=== PATIENT | male | born 1975 | race Caucasian/White ===

== ENCOUNTER 2021-03-23 17:56 | Inpatient (IN) | payer BC ==
[2021-03-23] MEDS ORDERED: Diazepam 5 MG TAB PO PRN (20:24)
[2021-03-23 23:42] VITALS: BMI 30.2
[2021-03-23] MEDS ORDERED: levETIRAcetam 500 MG TAB PO SCH (23:59)
[2021-03-24] MEDS ORDERED: Acetaminophen 650 MG Suppository PR PRN (00:29)
[2021-03-24] MEDS ORDERED: Ondansetron ODT 4 MG TAB PO PRN (00:29)
[2021-03-24] MEDS ORDERED: Acetaminophen 325 MG TAB PO PRN (00:29)
[2021-03-24] MEDS: Dexamethasone 4 MG TAB PO SCH ×4 (00:30→18:01)
[2021-03-24] MEDS ORDERED: Morphine 4 MG/ML VIAL SLOW IVP PRN (00:31)
[2021-03-24 06:50] LABS: SARS-CoV-2 NAA Rapid Test Not Detected (NotDetected)
[2021-03-24 07:13] LABS: #Monocytes 0.4 thou/uL (0.11-0.59); #Neutrophils 7.3 thou/uL (1.40-6.50); %Basophils 0.1 % (0.0-1.0); %Lymphocytes 11.4 % (21.0-51.0); %Neutrophils 83.4 % (42.0-75.0); Hemoglobin 14.7 g/dL (14.0-18.0); Mean Corpuscular HGB CONC 34.5 g/dL (32.0-36.0); Mean Corpuscular Hemoglobin 31.3 pg (27.0-31.0); Mean Corpuscular Volume 90.9 fL (78.0-98.0); Mean Platelet Volume 8.7 fL (7.4-10.4); Platelet Count 185 thou/uL (130-400); RBC Distribution Width 11.8 % (11.5-14.5); Red Blood Cell (RBC) Count 4.69 mill/uL (4.70-6.10); White Blood Cell (WBC) Count 8.8 thou/uL (4.8-10.8)
[2021-03-24 07:30] LABS: Anion Gap 12 mmol/L (10-20); BUN (Urea Nitrogen) 9 mg/dL (8.9-20.6); Calc. Creatinine Clearance 205 mL/min (70-130); Calcium 9.6 mg/dL (7.8-10.44); Carbon Dioxide 24 mmol/L (22-29); Chloride 104 mmol/L (98-107); Glucose 124 mg/dL (70-105); Potassium 4.3 mmol/L (3.5-5.1); Sodium 136 mmol/L (136-145)
[2021-03-24] MEDS: levETIRAcetam 500 MG TAB PO SCH ×2 (09:00→21:22)
[2021-03-24] MEDS ORDERED: Magnevist 469MG/ML 20 ML VIAL ONE (09:51)
[2021-03-24] MEDS ORDERED: Iopamidol-370 76% 500 ML 1 ML ONE (10:10)
[2021-03-24] MEDS: Zinc Sulfate 220 MG CAP PO SCH (11:47)
[2021-03-24] MEDS: Cholecalciferol (Vitamin D3) 400 UNITS TAB PO SCH (11:47)
[2021-03-24] MEDS: Ascorbic Acid 500 mg Chewable Tablet PO SCH (11:47)
[2021-03-25] MEDS: Dexamethasone 4 MG TAB PO SCH ×5 (00:46→23:00)
[2021-03-25] MEDS ORDERED: Lidocaine 0.5%/Epinephrine 1:200,000 50 ml Vial ONE (09:15)
[2021-03-25] MEDS ORDERED: Bacitracin Zinc Ointment 30 gm TUBE ONE (09:16)
[2021-03-25] MEDS ORDERED: Midazolam HCl 2 mg/2 ml Vial ONE (09:28)
[2021-03-25] MEDS: Zinc Sulfate 220 MG CAP PO SCH (10:07)
[2021-03-25] MEDS: levETIRAcetam 500 MG TAB PO SCH ×2 (10:07→20:18)
[2021-03-25] MEDS: Cholecalciferol (Vitamin D3) 400 UNITS TAB PO SCH (10:07)
[2021-03-25] MEDS: Ascorbic Acid 500 mg Chewable Tablet PO SCH (10:07)
[2021-03-25] MEDS ORDERED: ceFAZolin 2 GM/DEX 5% 100 ML BAG ONE (10:33)
[2021-03-25] MEDS ORDERED: Fentanyl 100 MCG/2 ML VIAL ONE ×3 (10:41→14:56)
[2021-03-25] MEDS ORDERED: Fentanyl 250 MCG/5 ML VIAL ONE (10:42)
[2021-03-25] MEDS ORDERED: Glycopyrrolate 0.2 MG/ML 5 ML SYRINGE ONE (10:49)
[2021-03-25] MEDS ORDERED: PHENYLEPHRINE-NS 100 MCG/ML 10 ML SYRINGE ONE (10:49)
[2021-03-25] MEDS ORDERED: Rocuronium Bromide 10 MG/ML (10ML VIAL) ONE (10:49)
[2021-03-25] MEDS ORDERED: PROPOFOL 200 MG/20 ML VIAL ONE (10:49)
[2021-03-25] MEDS ORDERED: Dexamethasone 20 MG/5 ML VIAL ONE (10:49)
[2021-03-25] MEDS ORDERED: Ondansetron PF 4 MG/2 ML Vial ONE ×3 (10:49→13:47)
[2021-03-25] MEDS ORDERED: Lidocaine 1% PF 5 ML VIAL ONE (10:49)
[2021-03-25] MEDS ORDERED: levETIRAcetam in NS 500 MG in Premix Bag 1 BAG IVPB SCH (11:00)
[2021-03-25] MEDS ORDERED: PROPOFOL 20 ML ONE ×3 (11:32→13:54)
[2021-03-25] MEDS ORDERED: Rocuronium Bromide 50 MG/5 ML VIAL ONE (11:34)
[2021-03-25] MEDS ORDERED: SUGAMMADEX SODIUM 200 MG/2 ML VIAL ONE (13:58)
[2021-03-25] MEDS ORDERED: Acetaminophen/Codeine 30-300mg Tablet PO PRN (16:21)
[2021-03-25] MEDS ORDERED: Promethazine HCl 12.5 MG in Sodium Chloride 0.9% 50 ML IVPB PRN (16:21)
[2021-03-25] MEDS ORDERED: Morphine 4 MG/ML VIAL ONE (16:26)
[2021-03-25] MEDS: Ondansetron PF 4 MG/2 ML Vial IVP PRN (16:29)
[2021-03-25] MEDS: Morphine 4 MG/ML VIAL SLOW IVP PRN ×3 (16:40→23:03)
[2021-03-25] MEDS: Sodium Chloride 0.9% 1,000 ML IV SCH (17:19)
[2021-03-25] MEDS: HYDROcodone/Acetaminophen 7.5/325 mg Tablet PO PRN (18:06)
[2021-03-25] MEDS: ceFAZolin Sodium/D5W 2 GM in Premix Bag 1 BAG IVPB SCH (21:26)
[2021-03-26] MEDS: Morphine 4 MG/ML VIAL SLOW IVP PRN ×5 (01:55→21:40)
[2021-03-26 04:36] LABS: Band 1 % (5-11); Hemoglobin 11.7 g/dL (14.0-18.0); Hypochromia SLIGHT = 6-15 cells (100X) (0-5/hpf); Lymphocytes 11 % (21-51); MDiff Complete? YES; Mean Corpuscular HGB CONC 33.4 g/dL (32.0-36.0); Mean Corpuscular Volume 92.9 fL (78.0-98.0); Mean Platelet Volume 8.8 fL (7.4-10.4); Monocytes 7 % (0-10); Neutrophil 81 % (42-75); Platelet Count 235 thou/uL (130-400); Platelet Morphology Comment Appears Adequate; RBC Distribution Width 12.2 % (11.5-14.5); Red Blood Cell (RBC) Count 3.78 mill/uL (4.70-6.10); White Blood Cell (WBC) Count 24.5 thou/uL (4.8-10.8)
[2021-03-26 04:42] LABS: Anion Gap 13 mmol/L (10-20); BUN (Urea Nitrogen) 26 mg/dL (8.9-20.6); Calc. Creatinine Clearance 152 mL/min (70-130); Carbon Dioxide 25 mmol/L (22-29); Chloride 105 mmol/L (98-107); Glucose 135 mg/dL (70-105); Potassium 4.5 mmol/L (3.5-5.1); Sodium 138 mmol/L (136-145)
[2021-03-26] MEDS: Ondansetron PF 4 MG/2 ML Vial IVP PRN (04:52)
[2021-03-26] MEDS: Dexamethasone 4 MG TAB PO SCH ×4 (05:31→23:17)
[2021-03-26] MEDS: ceFAZolin Sodium/D5W 2 GM in Premix Bag 1 BAG IVPB SCH ×2 (05:32→14:44)
[2021-03-26] MEDS: Sodium Chloride 0.9% 1,000 ML IV SCH ×2 (05:35→21:40)
[2021-03-26] MEDS: Ascorbic Acid 500 mg Chewable Tablet PO SCH (08:53)
[2021-03-26] MEDS: Zinc Sulfate 220 MG CAP PO SCH (08:54)
[2021-03-26] MEDS: Cholecalciferol (Vitamin D3) 400 UNITS TAB PO SCH (08:54)
[2021-03-26] MEDS: levETIRAcetam 500 MG TAB PO SCH ×2 (08:54→21:40)
[2021-03-26] MEDS: HYDROcodone/Acetaminophen 7.5/325 mg Tablet PO PRN (09:16)
[2021-03-27] MEDS: Morphine 4 MG/ML VIAL SLOW IVP PRN (03:42)
[2021-03-27] MEDS: Sodium Chloride 0.9% 1,000 ML IV SCH (06:28)
[2021-03-27] MEDS: Dexamethasone 4 MG TAB PO SCH ×2 (06:28→12:51)
[2021-03-27] MEDS: Ascorbic Acid 500 mg Chewable Tablet PO SCH (08:51)
[2021-03-27] MEDS: Zinc Sulfate 220 MG CAP PO SCH (08:51)
[2021-03-27] MEDS: Cholecalciferol (Vitamin D3) 400 UNITS TAB PO SCH (08:51)
[2021-03-27] MEDS: levETIRAcetam 500 MG TAB PO SCH (08:52)
[2021-03-27 12:03] VITALS: BP 151/84; TEMP 98.2
[2021-03-27] MEDS ORDERED: traMADol HCl 50 MG TAB PO PRN (14:15)
[2021-03-27] MEDS ORDERED: Bisacodyl 5 MG TAB PO PRN (14:18)
[2021-03-27] MEDS ORDERED: Docusate 100 MG CAP PO SCH (21:00)
== END 2021-03-27 17:00 | disposition home or self-care (01) | DRG 25 ==
LOC: SURG A 17:56 → CCU 03-25 10:25 → SURG A 03-26 10:12
PROVIDERS: ADMIT Family Medicine; ATTEND Internal Medicine
PROC: 00B70ZZ Excision of Cerebral Hemisphere, Open Approach (ICD-10-PCS; principal; 2021-03-25)
DX: C71.2 Malignant neoplasm of temporal lobe (principal); G93.6 Cerebral edema; G93.5 Compression of brain; C79.31 Secondary malignant neoplasm of brain; I10 Essential (primary) hypertension; Z20.822 Contact with and (suspected) exposure to COVID-19; H53.462 Homonymous bilateral field defects, left side; Z88.8 Allergy status to other drugs, medicaments and biological substances; Z79.899 Other long term (current) drug therapy; Z79.82 Long term (current) use of aspirin
CPT/HCPCS: 36415; 36416; 36430; 70450; 70553; 71260; 74177; 80048; 85025; 86850; 86900; 86901; 88307; 88331; 88341; 88342; 88360; 93970; A9579; C1713; J1100; J1642; J1953; J2001; J2250; J2270; J2405; J2704; J3010; J7050; J8540; Q9967; U0002

== ENCOUNTER 2021-06-09 09:51 | Emergency (ER) | payer BC, OTHER ==
[2021-06-09 10:25] LABS: #Eosinphils 0.1 thou/uL (0.0-0.7); #Lymphocytes 0.4 thou/uL (1.20-3.40); #Monocytes 0.5 thou/uL (0.11-0.59); #Neutrophils 6.6 thou/uL (1.40-6.50); %Basophils 0.5 % (0.0-1.0); %Eosinophils 1.2 % (0.0-10.0); %Monocytes 6.1 % (0.0-10.0); %Neutrophils 87.2 % (42.0-75.0); Hemoglobin 14.7 g/dL (14.0-18.0); Mean Corpuscular HGB CONC 34.1 g/dL (32.0-36.0); Mean Platelet Volume 8.1 fL (7.4-10.4); Platelet Count 130 thou/uL (130-400); RBC Distribution Width 12.3 % (11.5-14.5); Red Blood Cell (RBC) Count 4.75 mill/uL (4.70-6.10); White Blood Cell (WBC) Count 7.6 thou/uL (4.8-10.8)
[2021-06-09] MEDS ORDERED: Acetaminophen 500 MG TAB ONE (10:28)
[2021-06-09 10:49] LABS: ALT (SGPT) 28 U/L (8-55); AST (SGOT) 16 U/L (5-34); Albumin 4.5 g/dL (3.5-5.0); Alkaline Phosphatase 70 U/L (40-110); Anion Gap 10 mmol/L (10-20); BUN (Urea Nitrogen) 9 mg/dL (8.9-20.6); Bilirubin, Total 0.6 mg/dL (0.2-1.2); Calc. Creatinine Clearance 0 mL/min (70-130); Calcium 9.4 mg/dL (7.8-10.44); Carbon Dioxide 27 mmol/L (22-29); Chloride 103 mmol/L (98-107); Globulin 2.3 g/dL (2.4-3.5); Glucose 101 mg/dL (70-105); Lipase 29 U/L (8-78); Potassium 4.2 mmol/L (3.5-5.1); Protein, Total 6.8 g/dL (6.0-8.3); Sodium 136 mmol/L (136-145)
[2021-06-09] MEDS ORDERED: Dexamethasone 10 MG/ML VIAL ONE (12:37)
== END 2021-06-09 15:53 | disposition home or self-care (01) ==
LOC: ERS 09:51
DX: G93.9 Disorder of brain, unspecified (principal); R41.3 Other amnesia
CPT/HCPCS: 36415; 70450; 77386; 80053; 83605; 83690; 85025; 87040; 93005; 96374; J1100

== ENCOUNTER 2021-06-11 11:15 | Inpatient (IN) | payer BC, OTHER ==
[2021-06-11] MEDS ORDERED: Dexamethasone 10 MG/ML VIAL ONE (11:53)
[2021-06-11 11:59] LABS: #Lymphocytes 0.3 thou/uL (1.20-3.40); #Monocytes 0.9 thou/uL (0.11-0.59); #Neutrophils 11.7 thou/uL (1.40-6.50); %Basophils 0.2 % (0.0-1.0); %Lymphocytes 2.3 % (21.0-51.0); %Monocytes 7.2 % (0.0-10.0); %Neutrophils 90.4 % (42.0-75.0); Hemoglobin 13.6 g/dL (14.0-18.0); Mean Corpuscular HGB CONC 33.7 g/dL (32.0-36.0); Mean Corpuscular Hemoglobin 30.1 pg (27.0-31.0); Mean Corpuscular Volume 89.3 fL (78.0-98.0); Mean Platelet Volume 7.4 fL (7.4-10.4); Platelet Count 155 thou/uL (130-400); RBC Distribution Width 12.3 % (11.5-14.5); Red Blood Cell (RBC) Count 4.52 mill/uL (4.70-6.10)
[2021-06-11 12:23] LABS: ALT (SGPT) 22 U/L (8-55); AST (SGOT) 14 U/L (5-34); Alkaline Phosphatase 60 U/L (40-110); Anion Gap 11 mmol/L (10-20); BUN (Urea Nitrogen) 16 mg/dL (8.9-20.6); Bilirubin, Total 0.5 mg/dL (0.2-1.2); Calc. Creatinine Clearance 0 mL/min (70-130); Calcium 8.8 mg/dL (7.8-10.44); Carbon Dioxide 22 mmol/L (22-29); Chloride 96 mmol/L (98-107); Globulin 2.4 g/dL (2.4-3.5); Glucose 135 mg/dL (70-105); Protein, Total 6.4 g/dL (6.0-8.3); Sodium 125 mmol/L (136-145)
[2021-06-11 12:37] LABS: Bilirubin Negative (Negative); Blood, Urine Negative (Negative); Glucose, Urine (Dipstick) Normal (Negative); Ketone, Urine Negative (Negative); Leukocyte Negative Leu/uL (Negative); Nitrite Negative (Negative); Protein, Urine (Dipstick) 20 mg/dL (Neg-Trace); Specific Gravity, Urine 1.026 (1.002-1.036); pH, Urine 7.5 (5.0-9.0)
[2021-06-11 12:39] LABS: Clarity Hazy (Clear)
[2021-06-11 13:26] LABS: SARS-CoV-2 NAA Rapid Test Not Detected (NotDetected)
[2021-06-11] MEDS ORDERED: Ondansetron PF 4 MG/2 ML Vial IVP PRN ×2 (14:45→15:35)
[2021-06-11] MEDS ORDERED: Ondansetron ODT 4 MG TAB SL PRN (14:45)
[2021-06-11 14:48] VITALS: BMI 28.2
[2021-06-11] MEDS ORDERED: Sodium Chloride 3% 100 ML IVPB SCH (15:00)
[2021-06-11] MEDS ORDERED: Lorazepam 2 MG/ML VIAL SLOW IVP PRN (15:40)
[2021-06-11] MEDS ORDERED: Prevnar 13-Val Conj/PF 0.5 ML SYRINGE IM ONE (16:15)
[2021-06-11 16:49] LABS: Creatinine, Urine 135.67 mg/dL (63-166)
[2021-06-11] MEDS ORDERED: Dexamethasone 4 mg/ml Vial SLOW IVP SCH (18:00)
[2021-06-11] MEDS: Dexamethasone 4 mg/ml Vial SLOW IVP SCH ×2 (18:17→23:59)
[2021-06-11] MEDS: Cefepime 2 GM in Sodium Chloride 0.9% 100 ML IVPB SCH (22:28)
[2021-06-11 22:51] LABS: Anion Gap 10 mmol/L (10-20); BUN (Urea Nitrogen) 15 mg/dL (8.9-20.6); Calc. Creatinine Clearance 182 mL/min (70-130); Calcium 8.7 mg/dL (7.8-10.44); Carbon Dioxide 21 mmol/L (22-29); Chloride 96 mmol/L (98-107); Glucose 129 mg/dL (70-105); Potassium 4.1 mmol/L (3.5-5.1); Sodium 123 mmol/L (136-145)
[2021-06-11] MEDS ORDERED: Calcium Carbonate 500 MG ChewTAB PO SCH (23:30)
[2021-06-11] MEDS ORDERED: ADMIXTURE FEE IVPB SCH (23:45)
[2021-06-11] MEDS ORDERED: IN SODIUM CHLORIDE IVPB SCH (23:45)
[2021-06-12 01:53] LABS: Anion Gap 12 mmol/L (10-20); BUN (Urea Nitrogen) 15 mg/dL (8.9-20.6); Calc. Creatinine Clearance 180 mL/min (70-130); Calcium 8.4 mg/dL (7.8-10.44); Carbon Dioxide 19 mmol/L (22-29); Chloride 99 mmol/L (98-107); Glucose 121 mg/dL (70-105); Potassium 4.1 mmol/L (3.5-5.1); Sodium 126 mmol/L (136-145)
[2021-06-12] MEDS: Acetaminophen 650 MG/20.3 ML UDCUP PO PRN (05:54)
[2021-06-12] MEDS: Dexamethasone 4 mg/ml Vial SLOW IVP SCH ×3 (05:56→17:42)
[2021-06-12] MEDS ORDERED: Morphine 4 MG/ML VIAL SLOW IVP SCH (06:15)
[2021-06-12 06:17] LABS: #Lymphocytes 0.5 thou/uL (1.20-3.40); #Monocytes 1.5 thou/uL (0.11-0.59); #Neutrophils 10.5 thou/uL (1.40-6.50); %Basophils 0.1 % (0.0-1.0); %Eosinophils 0.1 % (0.0-10.0); %Lymphocytes 3.8 % (21.0-51.0); %Monocytes 12.1 % (0.0-10.0); %Neutrophils 84.1 % (42.0-75.0); Mean Corpuscular HGB CONC 34.8 g/dL (32.0-36.0); Mean Corpuscular Hemoglobin 30.8 pg (27.0-31.0); Mean Corpuscular Volume 88.5 fL (78.0-98.0); Mean Platelet Volume 7.5 fL (7.4-10.4); Platelet Count 158 thou/uL (130-400); RBC Distribution Width 12.4 % (11.5-14.5); Red Blood Cell (RBC) Count 4.53 mill/uL (4.70-6.10); White Blood Cell (WBC) Count 12.6 thou/uL (4.8-10.8)
[2021-06-12] MEDS ORDERED: Sodium Chloride 3% 300 ML IVPB SCH (06:30)
[2021-06-12 06:43] LABS: Anion Gap 16 mmol/L (10-20); BUN (Urea Nitrogen) 15 mg/dL (8.9-20.6); Calc. Creatinine Clearance 189 mL/min (70-130); Calcium 8.7 mg/dL (7.8-10.44); Carbon Dioxide 14 mmol/L (22-29); Chloride 98 mmol/L (98-107); Glucose 117 mg/dL (70-105); Sodium 124 mmol/L (136-145)
[2021-06-12 07:42] LABS: Bacteria/HPF 3+ HPF (None Seen); Bilirubin Negative (Negative); Blood, Urine Negative (Negative); Clarity Clear (Clear); Glucose, Urine (Dipstick) 30 mg/dL (Negative); Ketone, Urine 20 mg/dL (Negative); Leukocyte Negative Leu/uL (Negative); Nitrite Negative (Negative); Protein, Urine (Dipstick) 20 mg/dL (Neg-Trace); RBC/HPF 0-3 HPF (0-3); Specific Gravity, Urine 1.028 (1.002-1.036); Squamous Epithelial None Seen HPF (0-3); Urobilinogen Normal mg/dL (Less than 2); WBC/HPF 0-3 HPF (0-3); pH, Urine 6.5 (5.0-9.0)
[2021-06-12 07:44] LABS: Urine Culture Reflex Yes Yes
[2021-06-12] MEDS ORDERED: Sodium Chloride 3% 500 ML IVPB SCH ×2 (08:00→13:30)
[2021-06-12] MEDS ORDERED: Lorazepam 2 MG/ML VIAL SLOW IVP PRN (08:59)
[2021-06-12] MEDS ORDERED: FLU VACC QS2021-22(6MOS UP)/PF 60 MCG/0.5 ML SYRINGE IM ONE (09:00)
[2021-06-12] MEDS: Pantoprazole 40 MG VIAL IVP SCH (09:03)
[2021-06-12] MEDS: Cefepime 2 GM in Sodium Chloride 0.9% 100 ML IVPB SCH ×3 (09:03→23:13)
[2021-06-12] MEDS: Scopolamine 1.5 mg/72 hour Patch TD SCH (10:11)
[2021-06-12 10:15] LABS: Anion Gap 11 mmol/L (10-20); BUN (Urea Nitrogen) 16 mg/dL (8.9-20.6); Calc. Creatinine Clearance 187 mL/min (70-130); Calcium 8.6 mg/dL (7.8-10.44); Carbon Dioxide 19 mmol/L (22-29); Chloride 100 mmol/L (98-107); Glucose 120 mg/dL (70-105); Potassium 3.8 mmol/L (3.5-5.1); Sodium 126 mmol/L (136-145)
[2021-06-12] MEDS: Morphine 4 MG/ML VIAL SLOW IVP PRN ×2 (11:21→16:35)
[2021-06-12] MEDS: Acetaminophen 650 MG Suppository PR PRN ×3 (12:16→21:43)
[2021-06-12 13:00] LABS: Anion Gap 13 mmol/L (10-20); BUN (Urea Nitrogen) 15 mg/dL (8.9-20.6); Calc. Creatinine Clearance 184 mL/min (70-130); Calcium 8.5 mg/dL (7.8-10.44); Carbon Dioxide 19 mmol/L (22-29); Chloride 100 mmol/L (98-107); Glucose 115 mg/dL (70-105); Potassium 3.7 mmol/L (3.5-5.1); Sodium 128 mmol/L (136-145)
[2021-06-12 14:44] LABS: Anion Gap 11 mmol/L (10-20); BUN (Urea Nitrogen) 14 mg/dL (8.9-20.6); Calc. Creatinine Clearance 184 mL/min (70-130); Calcium 8.7 mg/dL (7.8-10.44); Carbon Dioxide 20 mmol/L (22-29); Chloride 101 mmol/L (98-107); Glucose 123 mg/dL (70-105); Potassium 3.7 mmol/L (3.5-5.1); Sodium 128 mmol/L (136-145)
[2021-06-12 16:50] LABS: Anion Gap 13 mmol/L (10-20); BUN (Urea Nitrogen) 14 mg/dL (8.9-20.6); Calc. Creatinine Clearance 187 mL/min (70-130); Calcium 8.4 mg/dL (7.8-10.44); Carbon Dioxide 18 mmol/L (22-29); Chloride 101 mmol/L (98-107); Glucose 132 mg/dL (70-105); Potassium 3.9 mmol/L (3.5-5.1); Sodium 128 mmol/L (136-145)
[2021-06-12 18:26] LABS: Anion Gap 13 mmol/L (10-20); BUN (Urea Nitrogen) 14 mg/dL (8.9-20.6); Calc. Creatinine Clearance 192 mL/min (70-130); Calcium 8.3 mg/dL (7.8-10.44); Carbon Dioxide 18 mmol/L (22-29); Chloride 103 mmol/L (98-107); Glucose 131 mg/dL (70-105); Potassium 3.9 mmol/L (3.5-5.1); Sodium 130 mmol/L (136-145)
[2021-06-12] MEDS ORDERED: Morphine 4 MG/ML VIAL SLOW IVP PRN (19:50)
[2021-06-12 20:58] LABS: Chloride 104 mmol/L (98-107); Potassium 3.9 mmol/L (3.5-5.1); Sodium 131 mmol/L (136-145)
[2021-06-12 20:59] LABS: Calcium 8.5 mg/dL (7.8-10.44); Glucose 132 mg/dL (70-105)
[2021-06-12 21:01] LABS: Anion Gap 11 mmol/L (10-20); Carbon Dioxide 20 mmol/L (22-29)
[2021-06-12 21:03] LABS: BUN (Urea Nitrogen) 14 mg/dL (8.9-20.6); Calc. Creatinine Clearance 180 mL/min (70-130)
[2021-06-12 22:15] LABS: Anion Gap 10 mmol/L (10-20); BUN (Urea Nitrogen) 14 mg/dL (8.9-20.6); Calc. Creatinine Clearance 177 mL/min (70-130); Calcium 8.5 mg/dL (7.8-10.44); Carbon Dioxide 22 mmol/L (22-29); Chloride 104 mmol/L (98-107); Glucose 126 mg/dL (70-105); Potassium 3.8 mmol/L (3.5-5.1); Sodium 132 mmol/L (136-145)
[2021-06-12] MEDS ORDERED: Midazolam HCl 2 mg/2 ml Vial ONE (23:29)
[2021-06-12] MEDS ORDERED: Ventilator Sedation Protocol 1 EACH FS ONE (23:38)
[2021-06-12] MEDS ORDERED: Propofol 1,000 MG/100 ML VIAL IV PRN (23:45)
[2021-06-12] MEDS ORDERED: DISCONTINUE PREVIOUS NARCOTIC PAIN MEDICATIONS AND BENZODIAZEPINES FS SCH (23:45)
[2021-06-12] MEDS ORDERED: Morphine 2 MG/ML VIAL SLOW IVP PRN (23:45)
[2021-06-12] MEDS ORDERED: Fentanyl BOLUS 250 ML IVPB PRN (23:45)
[2021-06-12] MEDS ORDERED: Fentanyl CADD 100 ML IV SCH (23:45)
[2021-06-12] MEDS ORDERED: Propofol BOLUS 1,000 MG/100 ML VIAL IV PRN (23:45)
[2021-06-13] MEDS: fentaNYL Citrate-0.9 % NaCl/PF 100 ML IV SCH (00:13)
[2021-06-13] MEDS: Dexamethasone 4 mg/ml Vial SLOW IVP SCH ×4 (00:14→18:54)
[2021-06-13 00:29] LABS: Actual Bicarbonate (HCO3a) 21.1 mEq/L (22-28); Base Excess (BEa) -2.2 mEq/L (-2.0 to +3.0); CO2 Tension 32.1 mmHg (35.0-45.0); Calcium, Ionized (arterial) 1.16 mmol/L (1.12-1.30); Carboxyhemoglobin (COHb) 0.5 gm% (0.0-3.0); Hemoglobin (Hb) 14.1 g/dL (14.0-18.0); O2 Tension (PaO2), arterial 75.3 mmHg (80.0-100.0); Potassium - ABG Lab 3.81 mmol/L (3.70-5.30); pH, Arterial 7.44 (7.35-7.45)
[2021-06-13 00:31] LABS: ALV-art Gradient 241.075 mmHg (0-20); Puncture Site LBR
[2021-06-13 05:25] LABS: Anion Gap 11 mmol/L (10-20); BUN (Urea Nitrogen) 15 mg/dL (8.9-20.6); Calc. Creatinine Clearance 161 mL/min (70-130); Calcium 8.9 mg/dL (7.8-10.44); Carbon Dioxide 24 mmol/L (22-29); Chloride 103 mmol/L (98-107); Glucose 131 mg/dL (70-105); Sodium 134 mmol/L (136-145)
[2021-06-13 06:49] LABS: Band 12 % (5-11); Hemoglobin 14.4 g/dL (14.0-18.0); Lymphocytes 2 % (21-51); MDiff Complete? YES; Mean Corpuscular HGB CONC 34.6 g/dL (32.0-36.0); Mean Corpuscular Volume 89.8 fL (78.0-98.0); Mean Platelet Volume 7.5 fL (7.4-10.4); Monocytes 6 % (0-10); Neutrophil 80 % (42-75); Platelet Count 151 thou/uL (130-400); RBC Distribution Width 12.7 % (11.5-14.5); Red Blood Cell (RBC) Count 4.65 mill/uL (4.70-6.10); White Blood Cell (WBC) Count 14.3 thou/uL (4.8-10.8)
[2021-06-13] MEDS: Cefepime 2 GM in Sodium Chloride 0.9% 100 ML IVPB SCH ×2 (08:51→21:23)
[2021-06-13] MEDS: Pantoprazole 40 MG VIAL IVP SCH (08:52)
[2021-06-13] MEDS ORDERED: Aspirin 300 MG Suppository PR SCH (14:45)
[2021-06-13 14:56] LABS: Anion Gap 10 mmol/L (10-20); BUN (Urea Nitrogen) 18 mg/dL (8.9-20.6); Calc. Creatinine Clearance 177 mL/min (70-130); Calcium 8.9 mg/dL (7.8-10.44); Carbon Dioxide 26 mmol/L (22-29); Chloride 101 mmol/L (98-107); Glucose 127 mg/dL (70-105); Potassium 4.1 mmol/L (3.5-5.1); Sodium 133 mmol/L (136-145)
[2021-06-13] MEDS: Acetaminophen 650 MG/20.3 ML UDCUP PO PRN ×2 (15:35→21:22)
[2021-06-13] MEDS: Atorvastatin Calcium 40 MG TAB PO SCH (21:23)
[2021-06-13] MEDS: Sodium Chloride 3% 500 ML IVPB SCH (22:35)
[2021-06-13 22:46] LABS: Anion Gap 12 mmol/L (10-20); BUN (Urea Nitrogen) 21 mg/dL (8.9-20.6); Calc. Creatinine Clearance 197 mL/min (70-130); Calcium 9.2 mg/dL (7.8-10.44); Carbon Dioxide 22 mmol/L (22-29); Chloride 103 mmol/L (98-107); Glucose 147 mg/dL (70-105); Potassium 4.2 mmol/L (3.5-5.1); Sodium 133 mmol/L (136-145)
[2021-06-14] MEDS: Dexamethasone 4 mg/ml Vial SLOW IVP SCH ×5 (00:59→23:53)
[2021-06-14 04:29] LABS: Band 3 % (5-11); Hemoglobin 13.6 g/dL (14.0-18.0); Hypochromia SLIGHT = 6-15 cells (100X) (0-5/hpf); Lymphocytes 2 % (21-51); MDiff Complete? YES; Mean Corpuscular HGB CONC 33.5 g/dL (32.0-36.0); Mean Corpuscular Hemoglobin 30.7 pg (27.0-31.0); Mean Corpuscular Volume 91.7 fL (78.0-98.0); Mean Platelet Volume 7.6 fL (7.4-10.4); Monocytes 10 % (0-10); Neutrophil 85 % (42-75); Platelet Count 152 thou/uL (130-400); Platelet Morphology Comment Appears Adequate; RBC Distribution Width 12.7 % (11.5-14.5); Red Blood Cell (RBC) Count 4.44 mill/uL (4.70-6.10); White Blood Cell (WBC) Count 12.8 thou/uL (4.8-10.8)
[2021-06-14 04:48] LABS: Anion Gap 12 mmol/L (10-20); BUN (Urea Nitrogen) 23 mg/dL (8.9-20.6); Calc. Creatinine Clearance 184 mL/min (70-130); Carbon Dioxide 23 mmol/L (22-29); Chloride 106 mmol/L (98-107); Glucose 134 mg/dL (70-105); Potassium 4.4 mmol/L (3.5-5.1); Sodium 137 mmol/L (136-145)
[2021-06-14] MEDS: Acetaminophen 650 MG/20.3 ML UDCUP PO PRN ×4 (04:50→21:24)
[2021-06-14] MEDS: fentaNYL Citrate-0.9 % NaCl/PF 100 ML IV SCH (09:26)
[2021-06-14] MEDS: Pantoprazole 40 MG VIAL IVP SCH (09:41)
[2021-06-14] MEDS: Cefepime 2 GM in Sodium Chloride 0.9% 100 ML IVPB SCH ×2 (09:41→21:18)
[2021-06-14] MEDS: Aspirin 300 MG Suppository PR SCH (09:41)
[2021-06-14 09:57] LABS: Anion Gap 16 mmol/L (10-20); BUN (Urea Nitrogen) 23 mg/dL (8.9-20.6); Calc. Creatinine Clearance 184 mL/min (70-130); Calcium 8.8 mg/dL (7.8-10.44); Carbon Dioxide 17 mmol/L (22-29); Chloride 107 mmol/L (98-107); Glucose 121 mg/dL (70-105); Potassium 4.8 mmol/L (3.5-5.1); Sodium 135 mmol/L (136-145)
[2021-06-14] MEDS: Sodium Chloride 3% 500 ML IVPB SCH (12:37)
[2021-06-14 13:11] LABS: Anion Gap 14 mmol/L (10-20); BUN (Urea Nitrogen) 25 mg/dL (8.9-20.6); Calc. Creatinine Clearance 187 mL/min (70-130); Calcium 8.8 mg/dL (7.8-10.44); Carbon Dioxide 20 mmol/L (22-29); Chloride 107 mmol/L (98-107); Glucose 140 mg/dL (70-105); Potassium 4.1 mmol/L (3.5-5.1); Sodium 137 mmol/L (136-145)
[2021-06-14] MEDS: Atorvastatin Calcium 40 MG TAB PO SCH (21:22)
[2021-06-15] MEDS: Acetaminophen 650 MG/20.3 ML UDCUP PO PRN ×2 (01:19→05:31)
[2021-06-15] MEDS: Dexamethasone 4 mg/ml Vial SLOW IVP SCH ×2 (05:31→12:32)
[2021-06-15 07:15] VITALS: BP 127/83
[2021-06-15 07:45] VITALS: TEMP 101.3
[2021-06-15] MEDS: Lorazepam 2 MG/ML VIAL SLOW IVP PRN ×5 (08:52→15:12)
[2021-06-15] MEDS: Scopolamine 1.5 mg/72 hour Patch TD SCH (08:55)
[2021-06-15] MEDS: Pantoprazole 40 MG VIAL IVP SCH (08:55)
[2021-06-15] MEDS: Aspirin 300 MG Suppository PR SCH (08:55)
[2021-06-15] MEDS: Cefepime 2 GM in Sodium Chloride 0.9% 100 ML IVPB SCH (09:10)
[2021-06-15] MEDS: Fentanyl 100 MCG/2 ML VIAL SLOW IVP PRN ×2 (15:12→16:28)
== END 2021-06-15 16:55 | disposition hospice, inpatient (51) | DRG 80 ==
LOC: ERS 11:15 → NEURO 12:36 → ERHOLD 17:39 → NEURO 17:43 → CCU 06-12 22:03 → MSONC 06-15 14:51
PROVIDERS: ADMIT Family Medicine; ATTEND Internal Medicine
PROC: 0BH18EZ Insertion of Endotracheal Airway into Trachea, Via Natural or Artificial Opening Endoscopic (ICD-10-PCS; principal; 2021-06-12)
PROC: 5A1945Z Respiratory Ventilation, 24-96 Consecutive Hours (ICD-10-PCS; 2021-06-12)
PROC: 0B918ZZ Drainage of Trachea, Via Natural or Artificial Opening Endoscopic (ICD-10-PCS; 2021-06-12)
DX: G93.6 Cerebral edema (principal); I63.9 Cerebral infarction, unspecified; J96.01 Acute respiratory failure with hypoxia; J69.0 Pneumonitis due to inhalation of food and vomit; C71.9 Malignant neoplasm of brain, unspecified; G93.49 Other encephalopathy; E22.2 Syndrome of inappropriate secretion of antidiuretic hormone; Z20.822 Contact with and (suspected) exposure to COVID-19; Z66 Do not resuscitate; Z51.5 Encounter for palliative care; F41.9 Anxiety disorder, unspecified; R50.9 Fever, unspecified; Z92.3 Personal history of irradiation; Z92.21 Personal history of antineoplastic chemotherapy; Z88.5 Allergy status to narcotic agent; Z88.8 Allergy status to other drugs, medicaments and biological substances; Z79.899 Other long term (current) drug therapy; Z78.1 Physical restraint status; R41.3 Other amnesia
CPT/HCPCS: 36415; 36416; 70450; 71045; 77386; 80048; 80053; 81001; 81003; 82570; 82805; 83605; 83690; 83930; 83935; 84300; 85007; 85025; 85027; 85652; 86140; 87040; 87086; 93005; 94002; 94003; 95816; 95819; 96374; C9113; J0692; J1100; J1953; J2060; J2250; J2270; J3010; J3490; J7131; U0002

== ENCOUNTER 2021-06-15 17:11 | Inpatient (IN) | payer OTHER ==
[2021-06-15] MEDS ORDERED: Hyoscyamine Sulfate SL 0.125 mg Tablet SL PRN (17:45)
[2021-06-15] MEDS ORDERED: Ondansetron PF 4 MG/2 ML Vial IVP PRN (17:45)
[2021-06-15] MEDS ORDERED: Scopolamine 1.5 mg/72 hour Patch TOP PRN (17:45)
[2021-06-15] MEDS: Dexamethasone 4 mg/ml Vial SLOW IVP SCH ×2 (18:20→23:35)
[2021-06-15] MEDS: Morphine 4 MG/ML VIAL SLOW IVP PRN ×3 (18:20→22:25)
[2021-06-15] MEDS: Lorazepam 2 MG/ML VIAL SLOW IVP PRN ×3 (18:20→22:26)
[2021-06-15] MEDS: Glycopyrrolate 0.2 MG/ML 5 ML SYRINGE SLOW IVP PRN ×2 (19:14→23:35)
[2021-06-15] MEDS: Acetaminophen 650 MG Suppository PR PRN (21:22)
[2021-06-15] MEDS: Haloperidol Lactate 5 MG/ML VIAL SLOW IVP PRN (23:35)
[2021-06-16] MEDS: Lorazepam 2 MG/ML VIAL SLOW IVP PRN ×5 (00:45→09:19)
[2021-06-16] MEDS: Morphine 4 MG/ML VIAL SLOW IVP PRN ×7 (00:46→09:46)
[2021-06-16] MEDS ORDERED: Hyoscyamine Sulfate SL 0.125 mg Tablet SL PRN ×2 (02:39→08:22)
[2021-06-16] MEDS: Acetaminophen 650 MG Suppository PR PRN ×2 (03:48→09:26)
[2021-06-16] MEDS: Glycopyrrolate 0.2 MG/ML 5 ML SYRINGE SLOW IVP PRN (06:47)
[2021-06-16] MEDS: Dexamethasone 4 mg/ml Vial SLOW IVP SCH (06:48)
[2021-06-16] MEDS: Haloperidol Lactate 5 MG/ML VIAL SLOW IVP PRN (06:48)
[2021-06-16] MEDS ORDERED: Atropine Sulfate 1% Ophth Soln 5 ml Bottle PO PRN (09:10)
[2021-06-16] MEDS ORDERED: PHENobarbital Sodium 65 MG/ML VIAL SLOW IVP PRN (09:13)
[2021-06-16 09:26] VITALS: TEMP 102.6
[2021-06-16] MEDS: Fentanyl 100 MCG/2 ML VIAL SLOW IVP PRN ×6 (10:15→11:48)
[2021-06-16 10:23] VITALS: BP 139/93
[2021-06-16] MEDS ORDERED: Morphine 4 MG/ML VIAL SLOW IVP SCH (13:00)
== END 2021-06-16 12:10 | disposition expired | DRG 951 ==
LOC: MSONC 17:11
PROVIDERS: ADMIT Family Medicine; ATTEND Family Medicine
DX: Z51.5 Encounter for palliative care (principal); C71.9 Malignant neoplasm of brain, unspecified; E87.1 Hypo-osmolality and hyponatremia; G93.40 Encephalopathy, unspecified; Z66 Do not resuscitate; Z20.822 Contact with and (suspected) exposure to COVID-19; Z88.8 Allergy status to other drugs, medicaments and biological substances; Z79.899 Other long term (current) drug therapy
CPT/HCPCS: J1100; J1630; J1953; J2060; J2270; J2560; J3010; J3490